=== PATIENT | female | born 1950 | race Caucasian/White ===

== ENCOUNTER 2016-03-09 15:54 | Observation (INO) | payer BC ==
[~2016-03-09] VITALS: Ht 167.6 cm; Wt 73.3 kg
[2016-03-09] MEDS ORDERED: ASPIRIN 81 MG CHEW TAB ONE (16:14)
[2016-03-09] MEDS ORDERED: NITROGLYCERIN 2% OINT 1 INCH PKT TOPICAL ONE (17:30)
[2016-03-09] MEDS ORDERED: SALINE FLUSH 10 ML FLUSH PRN (18:30)
[2016-03-09 20:00] VITALS: BP_SYST 164; BP_SYST 167; RESP 18; TEMP 97.9; Ht 167.6 cm; Wt 73.3 kg
[2016-03-09] MEDS: SALINE FLUSH 10 ML FLUSH SCH (20:00)
[2016-03-09] MEDS ORDERED: Flu Vaccine Quadrivalent 60 MCG/0.5 ML IM.VACC ONE (21:15)
[2016-03-09] MEDS ORDERED: GLUCAGON 1 MG VIAL IM PRN (21:15)
[2016-03-09] MEDS ORDERED: DEXTROSE 50% SYRINGE 50 ML IV PRN (21:15)
[2016-03-09] MEDS: LORAZEPAM 0.5 MG TAB PO SCH (22:29)
[2016-03-09] MEDS: DOXAZOSIN 2 MG TAB PO SCH (22:29)
[2016-03-09] MEDS: APIXABAN 5 MG TAB PO SCH (22:30)
[2016-03-09] MEDS: METOPROLOL TART 50 MG TAB PO SCH (22:31)
[2016-03-09] MEDS: PANTOPRAZOLE 40 MG TAB PO SCH (22:31)
[2016-03-09 23:24] VITALS: BP_SYST 170; RESP 18; TEMP 97.5
[2016-03-10] VITALS (12 sets, daily range): BP systolic 129–149; RESP 18; TEMP 97.3–98.4
[2016-03-10] MEDS: SODIUM CHLORIDE 0.9% FLUSH BAG 500 ML IV SCH (06:01)
[2016-03-10] MEDS: SALINE FLUSH 10 ML FLUSH SCH ×2 (08:22→21:52)
[2016-03-10] MEDS: APIXABAN 5 MG TAB PO SCH ×2 (08:22→21:53)
[2016-03-10] MEDS: LORAZEPAM 0.5 MG TAB PO SCH ×3 (08:22→21:52)
[2016-03-10] MEDS: ASPIRIN 81 MG CHEW TAB PO SCH (08:22)
[2016-03-10] MEDS: LISINOPRIL/HCTZ 20/12.5 TAB PO SCH (08:22)
[2016-03-10] MEDS: METOPROLOL TART 50 MG TAB PO SCH ×2 (08:22→21:54)
[2016-03-10] MEDS ORDERED: MAALOX 30 ML, LIDOCAINE 2% VISC 10 ML PO ONE ×2 (17:35)
[2016-03-10] MEDS ORDERED: MISSING DOSE XX ONE (17:45)
[2016-03-10] MEDS: DOXAZOSIN 2 MG TAB PO SCH (21:53)
[2016-03-10] MEDS: PANTOPRAZOLE 40 MG TAB PO SCH (21:54)
[2016-03-10] MEDS: FAMOTIDINE 20 MG TAB PO SCH (21:54)
[2016-03-11] VITALS: BP_SYST 147
[2016-03-11 03:34] VITALS: BP_SYST 122; RESP 18; TEMP 98.4
[2016-03-11 04:00] VITALS: BP_SYST 122
[2016-03-11] MEDS: SODIUM CHLORIDE 0.9% FLUSH BAG 500 ML IV SCH (06:00)
[2016-03-11 08:02] VITALS: BP_SYST 107; RESP 18; TEMP 97.5
[2016-03-11] MEDS ORDERED: LEXISCAN 0.4 MG/5 ML SYRINGE IV ONE (09:33)
[2016-03-11] MEDS: METOPROLOL TART 50 MG TAB PO SCH (11:23)
[2016-03-11] MEDS: FAMOTIDINE 20 MG TAB PO SCH (11:23)
[2016-03-11] MEDS: LISINOPRIL/HCTZ 20/12.5 TAB PO SCH (11:23)
[2016-03-11] MEDS: LORAZEPAM 0.5 MG TAB PO SCH (11:23)
[2016-03-11] MEDS: ASPIRIN 81 MG CHEW TAB PO SCH (11:23)
[2016-03-11] MEDS: APIXABAN 5 MG TAB PO SCH (11:23)
[2016-03-11] MEDS: SALINE FLUSH 10 ML FLUSH SCH (11:24)
[2016-03-11 11:54] VITALS: BP_SYST 127; RESP 20; TEMP 98.1
[2016-03-11 15:54] VITALS: BP_SYST 127; RESP 20; TEMP 98.1
== END 2016-03-11 15:24 | disposition home or self-care (01) ==
LOC: ENRESERVTM → ENRESERVDT → ER 15:54 → ENPENDDIS 18:42 → EMR 18:42 → PCU 19:53
PROVIDERS: ADMIT Internal Medicine Cardiovascular Disease; ATTEND Internal Medicine Cardiovascular Disease
DX: R07.89 Other chest pain (principal); I48.91 Unspecified atrial fibrillation; R00.2 Palpitations; I10 Essential (primary) hypertension; E11.9 Type 2 diabetes mellitus without complications; K21.9 Gastro-esophageal reflux disease without esophagitis; Z79.84 Long term (current) use of oral hypoglycemic drugs; Z79.899 Other long term (current) drug therapy; Z91.041 Radiographic dye allergy status; Z79.01 Long term (current) use of anticoagulants; Z79.82 Long term (current) use of aspirin
CPT/HCPCS: 36415; 71010; 78452; 80048; 80053; 80061; 82550; 82553; 82947; 83735; 83880; 84439; 84443; 84484; 85025; 85610; 85730; 93005; 93017; 93306; 99285; A9500; G0378; J2785; 94799

== ENCOUNTER 2016-03-13 16:06 | Observation (INO) | payer BC ==
[~2016-03-13] VITALS: Ht 167.6 cm; Wt 72.0 kg
[2016-03-13] MEDS ORDERED: ASPIRIN 81 MG CHEW TAB ONE (17:08)
[2016-03-13] MEDS ORDERED: PHARMACY TO DOSE SUBQ STA (18:29)
[2016-03-13] MEDS ORDERED: NITROGLYCERIN 2% OINT 1 INCH PKT TOPICAL STA (18:29)
[2016-03-13] MEDS ORDERED: DOCUSATE SOD 100 MG CAP PO PRN (18:30)
[2016-03-13] MEDS ORDERED: LORAZEPAM 0.5 MG TAB PO PRN (18:30)
[2016-03-13] MEDS ORDERED: ACETAMINOPHEN 325 MG TAB PO PRN (18:30)
[2016-03-13] MEDS ORDERED: TRAMADOL 50 MG TAB PO PRN (18:30)
[2016-03-13] MEDS ORDERED: TEMAZEPAM 7.5 MG CAP PO PRN (18:30)
[2016-03-13] MEDS ORDERED: MORPHINE 2 MG/ML SYR IV PRN (18:30)
[2016-03-13] MEDS ORDERED: ONDANSETRON 4 MG VIAL IV PRN (18:30)
[2016-03-13] MEDS ORDERED: ALU/MAG/SIM 30 ML UDC PO PRN (18:30)
[2016-03-13] MEDS ORDERED: NITROGLYCERIN SL 0.4 MG TAB SL PRN (18:30)
[2016-03-13] MEDS ORDERED: SALINE FLUSH 10 ML FLUSH PRN (18:30)
[2016-03-13] MEDS ORDERED: TEMAZEPAM 15 MG CAP PO PRN (18:30)
[2016-03-13] MEDS ORDERED: ENOXAPARIN 80 MG/0.8 ML SYR SUBQ STA (18:55)
[2016-03-13] MEDS ORDERED: NITROGLYCERIN 2% OINT 1 INCH PKT TOPICAL ONE (19:06)
[2016-03-13] MEDS ORDERED: ENOXAPARIN 80 MG/0.8 ML SYR SUBQ ONE (19:06)
[2016-03-13 20:16] VITALS: BP_SYST 128; RESP 18; TEMP 97.6
[2016-03-13 20:17] VITALS: Ht 167.6 cm; Wt 72.0 kg
[2016-03-13] MEDS ORDERED: Flu Vaccine Quadrivalent 60 MCG/0.5 ML IM.VACC ONE (20:20)
[2016-03-13] MEDS: METOPROLOL TART 50 MG TAB PO SCH (22:38)
[2016-03-13] MEDS: SALINE FLUSH 10 ML FLUSH SCH (22:39)
[2016-03-14] VITALS (10 sets, daily range): BP systolic 103–137; RESP 18; TEMP 97.8–99.1
[2016-03-14] MEDS: NITROGLYCERIN 2% OINT 1 INCH PKT TOPICAL SCH ×5 (00:14→23:21)
[2016-03-14] MEDS ORDERED: SODIUM CHLORIDE 0.9% FLUSH BAG 500 ML IV SCH (06:00)
[2016-03-14] MEDS: PANTOPRAZOLE 40 MG TAB PO SCH (06:20)
[2016-03-14] MEDS ORDERED: ENOXAPARIN 80 MG/0.8 ML SYR SUBQ SCH (08:00)
[2016-03-14] MEDS ORDERED: TEMAZEPAM 15 MG CAP PO PRN ×2 (08:40→21:00)
[2016-03-14] MEDS ORDERED: TEMAZEPAM 7.5 MG CAP PO PRN (08:40)
[2016-03-14] MEDS ORDERED: LORAZEPAM 0.5 MG TAB PO PRN ×2 (08:40→14:00)
[2016-03-14] MEDS ORDERED: DIPHENHYDRAMINE 50 MG/ML VIAL IV ONE (08:40)
[2016-03-14] MEDS ORDERED: DIAZEPAM 5 MG TAB PO ONE (08:40)
[2016-03-14] MEDS ORDERED: SOLU-CORTEF 100 MG/2 ML IV ONE (08:40)
[2016-03-14] MEDS ORDERED: ACETAMINOPHEN 325 MG TAB PO PRN (08:40)
[2016-03-14] MEDS: ASPIRIN 81 MG CHEW TAB PO SCH (08:55)
[2016-03-14] MEDS: METOPROLOL TART 50 MG TAB PO SCH ×2 (08:55→20:43)
[2016-03-14] MEDS ORDERED: MISSING DOSE XX ONE (08:55)
[2016-03-14] MEDS: SALINE FLUSH 10 ML FLUSH SCH ×2 (08:56→20:42)
[2016-03-14] MEDS ORDERED: SALINE FLUSH 10 ML FLUSH PRN (14:00)
[2016-03-14] MEDS ORDERED: ENOXAPARIN 80 MG/0.8 ML SYR SUBQ ONE (18:00)
[2016-03-15] VITALS (15 sets, daily range): BP systolic 105–132; RESP 16–18; TEMP 97.6–98.6
[2016-03-15] MEDS: SODIUM CHLORIDE 0.9% FLUSH BAG 500 ML IV SCH (06:00)
[2016-03-15] MEDS ORDERED: DIAZEPAM 5 MG TAB PO ONE (06:00)
[2016-03-15] MEDS: NITROGLYCERIN 2% OINT 1 INCH PKT TOPICAL SCH ×3 (06:33→17:35)
[2016-03-15] MEDS: PANTOPRAZOLE 40 MG TAB PO SCH (06:33)
[2016-03-15] MEDS: METOPROLOL TART 50 MG TAB PO SCH (09:42)
[2016-03-15] MEDS: ASPIRIN 81 MG CHEW TAB PO SCH ×2 (09:42→17:35)
[2016-03-15] MEDS: SALINE FLUSH 10 ML FLUSH SCH ×2 (09:43→20:53)
[2016-03-15] MEDS: LORAZEPAM 0.5 MG TAB PO SCH ×3 (10:45→20:52)
[2016-03-15] MEDS: APIXABAN 5 MG TAB PO SCH ×2 (12:17→20:52)
[2016-03-15] MEDS: SOTALOL HCL 120 MG TAB PO SCH ×2 (14:30→20:52)
[2016-03-15] MEDS ORDERED: FENTANYL 100 MCG/2 ML AMP ONE (16:43)
[2016-03-15] MEDS ORDERED: MIDAZOLAM 2 MG/2 ML INJ ONE ×2 (16:43→16:51)
[2016-03-15] MEDS ORDERED: LIDOCAINE 2% 20 ML ONE (16:43)
[2016-03-15] MEDS ORDERED: LIDOCAINE 1% 20ML ONE (16:43)
[2016-03-15] MEDS ORDERED: hePARIN 1,000 UNITS/ML (PORCINE) 10 ML ONE (16:43)
[2016-03-15] MEDS ORDERED: MEPERIDINE 25 MG/ML ONE (16:51)
[2016-03-15] MEDS: LISINOPRIL 20 MG TAB PO SCH (17:36)
[2016-03-15] MEDS ORDERED: DOXAZOSIN 2 MG TAB PO SCH (21:00)
[2016-03-15] MEDS ORDERED: Atorvastatin 20 MG TAB PO SCH (21:00)
[2016-03-15] MEDS ORDERED: METOPROLOL TART 25 MG TAB PO SCH (21:00)
[2016-03-16] MEDS: SODIUM CHLORIDE 0.9% FLUSH BAG 500 ML IV SCH (00:02)
[2016-03-16 04:11] VITALS: BP_SYST 128; RESP 18; TEMP 98.5
[2016-03-16 04:12] VITALS: RESP 18
[2016-03-16] MEDS: NITROGLYCERIN 2% OINT 1 INCH PKT TOPICAL SCH ×4 (06:08→18:14)
[2016-03-16 08:08] VITALS: BP_SYST 111; RESP 18; TEMP 97.3
[2016-03-16] MEDS: ASPIRIN 81 MG CHEW TAB PO SCH (09:41)
[2016-03-16] MEDS: LISINOPRIL 20 MG TAB PO SCH (09:41)
[2016-03-16] MEDS: SOTALOL HCL 120 MG TAB PO SCH (09:41)
[2016-03-16] MEDS: SALINE FLUSH 10 ML FLUSH SCH (09:41)
[2016-03-16] MEDS: PANTOPRAZOLE 40 MG TAB PO SCH (09:42)
[2016-03-16] MEDS: APIXABAN 5 MG TAB PO SCH (09:42)
[2016-03-16] MEDS: LORAZEPAM 0.5 MG TAB PO SCH ×2 (09:42→16:16)
[2016-03-16 12:18] VITALS: BP_SYST 124; RESP 18; TEMP 97.3
[2016-03-16 15:39] VITALS: BP_SYST 125; RESP 18; TEMP 97.8
[2016-03-16 19:51] VITALS: BP_SYST 125; RESP 18; TEMP 97.8
== END 2016-03-16 18:24 | disposition home or self-care (01) ==
LOC: ENRESERVDT → ENRESERVTM → ER 16:06 → EMR 18:29 → ENPENDDIS 18:29 → PCU2 20:03
PROVIDERS: ADMIT Internal Medicine Cardiovascular Disease; ATTEND Internal Medicine Cardiovascular Disease
DX: I48.1 Persistent atrial fibrillation (principal); R07.89 Other chest pain; Z79.82 Long term (current) use of aspirin; Z79.01 Long term (current) use of anticoagulants; E11.9 Type 2 diabetes mellitus without complications; I10 Essential (primary) hypertension; R06.02 Shortness of breath; K21.9 Gastro-esophageal reflux disease without esophagitis; Z79.84 Long term (current) use of oral hypoglycemic drugs
CPT/HCPCS: 36415; 71010; 80053; 80061; 82550; 82553; 83735; 83880; 84484; 85014; 85018; 85025; 85379; 85610; 85730; 92960; 93005; 93458; 99283; C1894; G0378; J2250; J3010; 94799